=== PATIENT | male | born 1985 | race Caucasian/White ===

== ENCOUNTER 2019-10-31 10:04 | Emergency (ER) | payer OTHER, SELFPAY ==
[2019-10-31 10:42] VITALS: BP 134/69; PULSE 72; RESP 16; TEMP 36.5; O2SAT 100
--- NOTE | 2019-10-31 10:54 | ED.URI ---
HPI - URI/Sore Throat General Chief Complaint: Upper Respiratory Infection Stated Complaint: Cold/Flu symptoms History of Present Illness HPI Narrative: This is a 34-year-old male that comes in complaining nausea body aches fever and not feeling well which started on Thursday been taking TheraFlu but is just weak and exhausted as well treatment options persistent pain. Related Data Allergies Allergy/AdvReac Type Severity Reaction Status Date / Time No Known Allergies Allergy Verified 10/31/19 10:59 Review of Systems Review of Systems: Narrative: CONSTITUTIONAL: reports fever, chills, or sweats. EYES: Denies visual changes, redness, or discharge. ENT: reports rhinorrhea, congestion, sore throat, or otalgia. CARDIOVASCULAR:Denies chest pain, palpitations, or edema. RESPIRATORY: reports cough or dyspnea. GASTROINTESTINAL: Denies abdominal pain, nausea, vomiting, or diarrhea. GENITOURINARY: Denies dysuria or hematuria. SKIN:[Denies rash or itching. MUSCULOSKELETAL:Denies back pain, joint pain, or myalgia. NEUROLOGIC: Denies headache, numbness, or weakness. PSYCHIATRIC:Denies anxiety or depression PMFSH Comments At time as signature, I have reviewed and agree with nursing past medical, social, surgical and family history. Please see nursing chart for further information. There is no relevant family history pertinent to the presenting complaint. Exam Narrative: Exam Narrative: GENERAL:Well-appearing, well-nourished, and in no acute distress. Fatigue, body aches HEAD:Normocephalic, atraumatic. EYES: PERRLA and EOMI. ENT: Nares clear, mild rhinorrhea or epistaxis. Mucous membranes moist. Pharyngeal erythema NECK: Supple. CHEST: Clear to auscultation. No respiratory distress. HEART: Regular rate and rhythm. No murmur heard. Normal peripheral pulses. ABDOMEN: Soft, nontender, nondistended, normal active bowel sounds. EXTREMITIES: Normal range of motion. No edema. SKIN: Warm, dry, no rash. NEURO: No focal deficits. Alert and oriented x3. Course Vital Signs Vital signs: Vital Signs Temperature 97.7 F 10/31/19 10:42 Pulse Rate 72 10/31/19 10:42 Respiratory Rate 16 10/31/19 10:42 Blood Pressure 134/69 10/31/19 10:42 Pulse Oximetry 100 10/31/19 10:42 Temperature 97.7 F 10/31/19 10:42 Pulse Rate 72 10/31/19 10:42 Respiratory Rate 16 10/31/19 10:42 Blood Pressure 134/69 10/31/19 10:42 Pulse Oximetry 100 10/31/19 10:42 MDM - URI/Sore Throat Lab Data Labs: Influenza A Screen Negative Reference Range: Negative Influenza B Screen Positive Reference Range: Negative Discharge Plan Discharge Clinical Impression: Influenza Patient Disposition: Home, Self-Care Condition: Stable Instructions: Antibiotic Form, Influenza (ED), Acute Nausea and Vomiting (ED) Additional Instructions: Influenza B positive Prescriptions: New oseltamivir [Tamiflu] 75 mg capsule 75 mg PO Q12H 5 Days Qty: 10 RF: 0 ondansetron HCl [Zofran] 4 mg tablet 4 mg PO Q8H PRN (Reason: nausea and vomiting) Qty: 10 RF: 0 Follow-up/Referrals: Kyle,Siva Edmond MD [Primary Care Provider] - Stand Alone Forms: Work/School Release IP Time of Disposition: 11:08 Discharge Date/Time: 10/31/19 11:10
== END 2019-10-31 11:10 | disposition home or self-care (01) ==
PROVIDERS: Emergency Provider Nurse Practitioner Family; PCP Chiropractor
DX: J10.1 Influenza due to other identified influenza virus with other respiratory manifestations (principal)
CPT/HCPCS: 87804; 99203; G0463

== ENCOUNTER 2020-07-23 11:22 | Emergency (ER) | payer OTHER, SELFPAY ==
--- NOTE | 2020-07-23 11:26 | ED.GENADULT ---
HPI - General Adult General Chief complaint: Upper Respiratory Infection Stated complaint: runny nose headache chest/stomach Time Seen by Provider: 07/23/20 11:26 Source: patient Mode of arrival: ambulatory Limitations: no limitations History of Present Illness HPI narrative: 35-year-old male patient presents to the [facility] with complaints of cold symptoms for the past 2 to 3 days. Patient denies any fevers or chills. Patient states he has had a little bit of congestion, body aches and a headache. Patient denies any coughing, chest pain or shortness of breath. Denies any abdominal pain, nausea, vomiting or diarrhea. Patient denies being around anybody that has been positive for Covid that he is aware of. Patient states he has not been tested for Covid as of right now. Patient denies taking anything for his symptoms. Related Data Home Medications Medication Instructions Recorded Confirmed No Home Medications 07/23/20 07/23/20 Allergies Allergy/AdvReac Type Severity Reaction Status Date / Time No Known Allergies Allergy Verified 10/31/19 10:59 Review of Systems Review of Systems: Narrative: CONSTITUTIONAL: Denies fever, chills, or sweats. Positive body aches EYES: Denies visual changes, redness, or discharge. ENT: Positive rhinorrhea, positive congestion, denies sore throat, or otalgia. CARDIOVASCULAR: Denies chest pain, palpitations, or edema. RESPIRATORY: Denies cough or dyspnea. GASTROINTESTINAL: Denies abdominal pain, nausea, vomiting, or diarrhea. GENITOURINARY: Denies dysuria or hematuria. SKIN: Denies rash or itching. MUSCULOSKELETAL: Denies back pain, joint pain, or myalgia. NEUROLOGIC: Positive headache, denies numbness, or weakness. PSYCHIATRIC: Denies anxiety or depression. PMFSH Social History Social History Gender identity (if verbalized by the patient): Male Comments At the time of my signature I agree with nursing past medical history, surgical, social, and family history. There is no relevant family history pertinent to the presenting complaint. Exam Narrative: Exam Narrative: GENERAL: Well-appearing, well-nourished, and in no acute distress. HEAD: Normocephalic, atraumatic. EYES: PERRLA and EOMI. ENT: Nares clear, no rhinorrhea or epistaxis. Mucous membranes moist. Posterior pharynx with slight erythema but no tonsillar edema, no exudates or lesions present. Bilateral TMs are clear no erythema or foreign bodies in the canal. NECK: Supple. No lymphadenopathy CHEST: Clear to auscultation. No respiratory distress. Patient able talk clear complete sentences. No tripoding noted. HEART: Regular rate and rhythm. No murmur heard. Normal peripheral pulses. ABDOMEN: Soft, nontender, nondistended, normal active bowel sounds. EXTREMITIES: Normal range of motion. No edema. SKIN: Warm, dry, no rash. NEURO: No focal deficits. Alert and oriented x3. Course Reevaluation(s) Reevaluation #1: Reevaluated patient after his strep and influenza had come back. Notified him that he is negative for both today. Offered to send patient for Covid testing and he does agree. Discussed with patient we will fax over an order to the hospital and the [facility] should contact him either today or tomorrow to schedule a time for the Covid testing. Discussed with him that in the meantime he needs to stay quarantined and it is recommended that if you do have symptoms to quarantine for 10 days regardless of negative or test positive test results. Patient verbalized understanding of this. Discussed with him he can take [id number] medications such as Tylenol, ibuprofen or any other sinus medications as needed. Patient verbalized understanding denies any other questions or concerns at this time. Date: 07/23/20 Time: 12:01 Vital Signs Vital signs: Vital Signs Temperature 36.7 C 07/23/20 11:32 Pulse Rate 63 07/23/20 11:32 Respiratory Rate 16
[2020-07-23 11:32] VITALS: BP 133/65; PULSE 63; RESP 16; TEMP 36.7; O2SAT 100
== END 2020-07-23 12:08 | disposition home or self-care (01) ==
PROVIDERS: Emergency Provider Nurse Practitioner Family; PCP Chiropractor
DX: J06.9 Acute upper respiratory infection, unspecified (principal); Z20.828 Contact with and (suspected) exposure to other viral communicable diseases
CPT/HCPCS: 87081; 87804; 87880; 99213; G0463

== ENCOUNTER 2020-07-28 06:51 | Outpatient (NON) | payer OTHER, SELFPAY ==
[2020-07-28 23:31] LABS: SARS-CoV-2 RNA PCR Negative
== END 2020-07-28 06:52 ==
LOC: ANHCOVIDDT 06:51
PROVIDERS: PCP Chiropractor; Visit Provider Nurse Practitioner Family
DX: J06.9 Acute upper respiratory infection, unspecified (principal); Z20.828 Contact with and (suspected) exposure to other viral communicable diseases
CPT/HCPCS: 87635; C9803; U0003

== ENCOUNTER 2021-01-29 19:37 | Emergency (ER) | payer OTHER, SELFPAY ==
[2021-01-29 19:43] VITALS: BP 152/74; PULSE 72; RESP 16; TEMP 36.9; O2SAT 100
--- NOTE | 2021-01-29 19:44 | ED.EYEPROB ---
HPI - Eye Problem General Chief complaint: Eye Problems Stated complaint: Redness both Eyes Time Seen by Provider: 01/29/21 19:44 Source: patient and RN notes reviewed Mode of arrival: ambulatory Limitations: no limitations History of Present Illness HPI Narrative: 35-year-old male presents to the [facility] with bilateral eye redness and states are very itchy for the last 7 days. Has tried eyedrops that is [id number] with no relief. Normally wears contact lenses. Denies change in vision, blurry vision. Related Data Allergies Allergy/AdvReac Type Severity Reaction Status Date / Time No Known Allergies Allergy Verified 01/29/21 19:52 Review of Systems Review of Systems: All systems reviewed & are unremarkable except as noted in HPI and below Constitutional: Constitutional: Reports no additional constitutional complaints, Denies chills, Denies fever(s) and Denies weakness Eyes: Eyes: Reports as per HPI, Denies change in vision and Denies photophobia ENT: Reports system reviewed and no additional complaints, except as documented Cardiovascular: Cardiovascular: Reports no additional cardiovascular complaints and Denies chest pain Respiratory: Respiratory: Reports no additional respiratory complaints, Denies cough, Denies dyspnea and Denies wheezing Gastrointestinal: Gastrointestinal: Reports no additional gastrointestinal complaints, Denies abdominal pain, Denies diarrhea, Denies nausea and Denies vomiting Musculoskeletal: Musculoskeletal: Reports no additional musculoskeletal complaints Integumentary/Breasts: Skin/Breast: Reports system reviewed and no additional complaints, except as docu Neurologic: Reports system reviewed and no additional complaints, except as documented PMFSH Social History Social History Gender identity (if verbalized by the patient): Male Comments At the time of my signature, I reviewed and agree with the nursing past medical, surgical, social, and family history. There is no relevant family history pertinent to the patient complaint. Exam Const: General: healthy appearing, no acute distress and alert Nutritional Appearance: well nourished Orientation/consciousness: patient oriented x3 Limitations: no limitations HENMT: Head: normal to inspection Ears: external ears normal and TM's normal bilaterally Eyes: Conjunctivae: conjunctival abnormality bilateral conjunctival injection diffuse Pupils: Equal, round and reactive pupils present Direct Ophthalmoscopy: no photophobia and No photophobia Neck: Neck: normal visual inspection, no lymphadenopathy and no meningeal signs Chest: Chest palpation & inspection: normal inspection of the chest Resp: Effort & Inspection: normal respiratory effort and no use of accessory muscles Auscultation: clear to auscultation bilaterally, no crackles, no rales, no rhonchi and no wheezes Cardio: Rate: regular rate Rhythm: regular rhythm : Male General Exam: Yes normal external exam Testes: Testes normal Back/Spine/Pelvis: Back: no CVA tenderness Skin: General skin exam: normal color Rashes: no rashes Wounds: no wounds Neuro: General: patient oriented x3, moves all extremities and no meningeal signs Cranial nerves: Yes Nystagmus not present Speech: normal speech Gait exam (Neuro): Normal gait present Extrem: General: normal to inspection Psych: Appearance: grossly normal and well kempt Mental Status: mental status grossly normal Affect: normal affect Attitude: cooperative Thought content: Yes Normal thought content present Course Course Emergency Course: Discharge instructions reviewed with patient, as well as provided in writing per nursing staff. The instructions also include specific and strict return/GO TO THE ER as well as f/u information. All questions have been answered, and the patient deny any further questions with discharge and discharge plan. Vital Signs Vital signs: Vital
[2021-01-29 19:52] VITALS: BP 152/74; PULSE 72; RESP 16; TEMP 36.9; O2SAT 100
== END 2021-01-29 20:05 | disposition home or self-care (01) ==
PROVIDERS: Emergency Provider Nurse Practitioner
DX: H10.9 Unspecified conjunctivitis (principal)
CPT/HCPCS: 99213; A9270; G0463